=== PATIENT | female | born 1990 | race Caucasian/White ===

== ENCOUNTER 2018-05-31 21:08 | Emergency (ER) | payer MEDICAID, OTHER ==
[2018-05-31 21:24] VITALS: BP 137/76
--- NOTE | 2018-05-31 21:37 | ED ---
GI/ HPI - HPI Summary HPI Summary: 27 yr old female with the complaint of dysuria, frequency of urination since last night and now today some blood in the urine with dysuria. No fever or chills. She does have a little back pain. No NVD. LMP May 03. No other complaints. - History of Current Complaint Chief Complaint: [facility]CG[facility] Time Seen by Provider: 05/31/18 21:26 Stated Complaint: UTI SYMPTOMS Hx Last Menstrual Period: 05/03/18 Pain Intensity: 5 - Allergy/Home Medications Allergies/Adverse Reactions: Allergies Allergy/AdvReac Type Severity Reaction Status Date / Time No Known Allergies Allergy Verified 05/31/18 21:21 Home Medications: Home Medications PARoxetine HCL TAB* [Paxil TAB*] 40 mg PO DAILY 05/31/18 [History Confirmed 04/13] SUMAtriptan TAB* [Imitrex TAB*] 100 mg PO SEE INSTRUCTIONS 05/31/18 [History Confirmed 05/31/18] traZODone TAB* [Desyrel TAB*] 25 mg PO BEDTIME 05/31/18 [History Confirmed 05/31] PMH/Surg Hx/FS Hx/Imm Hx - Surgical History Surgery Procedure, Year, and Place: back surgery Infectious Disease History: No Infectious Disease History: Denies: Traveled Outside the [place] in Last 30 Days - Family History Known Family History: Positive: None - Social History Alcohol Use: None Substance Use Type: Reports: None Smoking Status (MU): Never Smoked Tobacco Review of Systems Positive: burning, dysuria, frequency, hematuria All Other Systems Reviewed And Are Negative: Yes Physical Exam Triage Information Reviewed: Yes Vital Signs On Initial Exam: Initial Vitals Temp Pulse Resp BP Pulse Ox 98.8 F 96 18 137/76 100 05/31/18 21:12 05/31/18 21:12 05/31/18 21:12 05/31/18 21:12 05/31/18 21:12 Vital Signs Reviewed: Yes Appearance: Positive: Well-Appearing, No Pain Distress Skin: Positive: Warm, Skin Color Reflects Adequate Perfusion Head/Face: Positive: Normal Head/Face Inspection Eyes: Positive: EOMI ENT: Positive: Normal ENT inspection Neck: Positive: Nontender Respiratory/Lung Sounds: Positive: Clear to Auscultation, Breath Sounds Present Cardiovascular: Positive: RRR. Negative: Murmur Abdomen Description: Positive: Nontender. Negative: CVA Tenderness (R), CVA Tenderness (L) Musculoskeletal: Positive: Strength/ROM Intact Neurological: Positive: Sensory/Motor Intact, Alert, Oriented to Person Place, Time, CN Intact II-III Psychiatric: Positive: Normal Diagnostics - Vital Signs Vital Signs Temp Pulse Resp BP Pulse Ox 05/31/18 21:12 98.8 F 96 18 137/76 100 - Laboratory Lab Statement: Any lab studies that have been ordered have been reviewed, and results considered in the medical decision making process. GIGU Course/Dx - Course Course Of Treatment: 27 yr old with hemorragic cystitis. Rx bactrim DS. - Diagnoses Provider Diagnoses: Hemorrhagic cystitis Discharge - Sign-Out/Discharge Documenting (check all that apply): Discharge/Admit/Transfer - Discharge Plan Condition: Good Disposition: HOME Prescriptions: Sulfamethox/Trimethoprim DS* [Bactrim DS 800/160 TAB*] 1 tab PO BID #14 tab Patient Education Materials: Urinary Tract Infection in Women (ED) Referrals: Scott Peters [Primary Care Provider] - - Billing Disposition and Condition Condition: GOOD Disposition: Home
[2018-05-31] MEDS ORDERED: Sulfamethox/Trimethoprim DS 800/160* TAB PO ONE (21:53)
== END 2018-05-31 21:57 | disposition home or self-care (01) ==
LOC: UCCORT 21:08
DX: N30.90 Cystitis, unspecified without hematuria (principal); B96.20 Unspecified Escherichia coli [E. coli] as the cause of diseases classified elsewhere
CPT/HCPCS: 81003; 84702; 87077; 87086; 87186; 99212; A9270-GY; G0463